=== PATIENT | male | born 2000 | race Caucasian/White ===

== ENCOUNTER 2019-08-24 22:05 | Emergency (ER) | payer OTHER ==
[~2019-08-24] VITALS: Ht 167.6 cm; Wt 64.4 kg
[2019-08-24] MEDS ORDERED: TOBRAMYCIN SULFA5 M1 OPHTHALMIC (23:57)
[2019-08-25 00:12] VITALS: BP 116/74
== END 2019-08-25 00:15 | disposition home or self-care (01) ==
LOC: ER 22:05
DX: S05.01XA Injury of conjunctiva and corneal abrasion without foreign body, right eye, initial encounter (principal); X58.XXXA Exposure to other specified factors, initial encounter; Y93.89 Activity, other specified; Y92.89 Other specified places as the place of occurrence of the external cause; Y99.8 Other external cause status